=== PATIENT | male | born 1970 | race African-American/Black ===

== ENCOUNTER 2016-11-19 09:29 | Emergency (ER) | payer MEDICARE, OTHER ==
[~2016-11-19] VITALS: Ht 167.6 cm; Wt 62.6 kg
--- NOTE | 2016-11-19 10:46 | RAD ---
2 view CXR: Clinical indications: Productive cough for one year. Dizziness and chills for 3 days.. Findings: No acute lung infiltrate or pleural effusion or pulmonary edema or lung mass or pneumothorax is seen. The heart size, pulmonary vasculature, mediastinum and both anthony are unremarkable. The osseous structures appear intact. Impression: No acute radiographic abnormality is seen.
--- NOTE | 2016-11-19 10:54 | PHYS DOC ---
Past Medical History Past Medical History: Anxiety, Bipolar, HIV, Schizophrenia Past Surgical History: No Surgical History Smoking: Less than 1pk/day Alcohol Use: Occasionally Drug Use: Marijuana Adult General Chief Complaint Chief Complaint: EARACHE/EAR PAIN HPI HPI Patient is a 46 year old HIV+ male who presents with right ear pain and vertigo for 2 days. He reports chills, productive cough, and chronic nasal congestion. He has had intermittent left lower rib pain with his cough. He also reports some the left axilla for 4 days. He denies any drainage from the wounds. He states they are getting better spontaneously. He has a history of similar intermittently. He denies any fever, sore throat, or shortness of breath. The patient states that his viral load is nondetectable and his CD4 count is greater than 800 on Atripla antiretroviral therapy. He sees a PCP and infectious disease doctor at [facility]. Review of Systems Review of Systems Constitutional: Denies fever. Reports chills. Eyes: Denies change in visual acuity, redness, or eye pain. [] HENT: Denies sore throat. Reports right ear pain and chronic nasal congestion. Respiratory: Denies shortness of breath. Reports productive cough. Cardiovascular: Denies palpitations or edema. Reports intermittent left lower rib pain with cough. GI: Denies abdominal pain, nausea, vomiting, bloody stools or diarrhea. [] : Denies dysuria, hematuria or urinary frequency. [] Musculoskeletal: Denies back pain or joint pain. [] Integument: Denies rash or skin lesions. Reports left axillary abscess. Neurologic: Denies headache, focal weakness or sensory changes. Reports vertigo. Endocrine: Denies polyuria or polydipsia. [] Psych: Denies anxiety or depression. [] All systems reviewed and negative unless otherwise stated in the HPI. P Current Medications Current Medications Current Medications Medications (Trade) Dose Ordered Sig/Leslee Start Time Stop Time Status Last Admin Dose Admin Meclizine HCl (Antivert) 25 mg 1X ONCE 11/19/16 11:15 11/19/16 11:16 DC 11/19/16 10:49 25 MG Allergies Allergies Allergies Coded Allergies Type Severity Reaction Last Updated Verified fluphenazine Allergy Intermediate 11/19/16 Yes haloperidol Allergy Intermediate 11/19/16 Yes Physical Exam Physical Exam Constitutional: Well developed, well nourished, no acute distress, non-toxic appearance. [] HENT: Normocephalic, atraumatic, bilateral external ears normal, oropharynx moist, no oral exudates, nose normal. Bilateral TMs without erythema or bulging. There is no posterior pharyngeal erythema or tonsillar edema. Bilateral nasal turbinates are swollen and erythematous with purulent drainage. Eyes: PERRLA, EOMI, conjunctiva normal, no discharge. The patient reports vertigo with lateral movements of the eye. Neck: Normal range of motion, no tenderness, supple, no stridor. [] Cardiovascular: Heart rate regular rhythm, no murmur [] Lungs & Thorax: Bilateral breath sounds clear to auscultation without wheezes, rales, or rhonchi. Abdomen: Bowel sounds normal, soft, no tenderness, no masses, no pulsatile masses. [] Skin: Warm, dry, no erythema, no rash. [] Back: No tenderness, no CVA tenderness. [] Extremities: No tenderness, no cyanosis, no clubbing, ROM intact, no edema. [] Neurologic: Alert and oriented X 3, normal motor function, normal sensory function, no focal deficits noted. CN II-XII grossly intact. Psychologic: Affect normal, judgement normal, mood normal. [] Current Patient Data Vital Signs Vital Signs Date Time Temp Pulse Resp B/P Pulse Ox O2 Delivery O2 Flow Rate FiO2 11/19/16 10:15 98.1 64 16 100 Room Air 98.1 EKG EKG EKG at 1033. Heart rate [address] bpm. Sin[address] rhythm with ST elevation in leads V3 through V6 with concave ST changes with LVH consistent with early repolarization. Does not appear consistent with a STEMI. Interpreted by and discussed with Dr. Palmer. Radiology/Procedures Radiology/Procedures REASON: productive cough, chills, HIV+ PROCEDURE: CHEST PA & LATERAL 2 view CXR: Clinical indications: Productive cough for one year. Dizziness and chills for 3 days.. Findings: No acute lung infiltrate or pleural effusion or pulmonary edema or lung mass or pneumothorax is seen. The heart size, pulmonary vasculature, mediastinum and both anthony are unremarkable. The osseous structures appear intact. Impression: No acute radiographic abnormality is seen. Course & Med Decision Making Course & Med Decision Making Pertinent Labs and Imaging studies reviewed. (See chart for details) Patient is HIV positive male who presents with right ear pain and vertigo for 2 days as well has left axillary abscess for 4 days. On exam, he does not appear to have otitis. He does report vertigo with eye movements. There is no nystagmus. There are no neurologic deficits. He complained of chest pain with the cough. EKG is consistent with LVH with early repolarization. Chest x-ray does not show any focal infiltrates. Patient is discharged home with prescription for Keflex and Antivert. He is given contact information for infectious disease for follow-up at this hospital, as he requests this information because it is closer to him than [facility]. Return precautions were discussed. He verbalizes understanding and agrees with plan. Dragon Disclaimer Dragon Disclaimer This electronic medical record was generated, in whole or in part, using a voice recognition dictation system. Departure Departure Impression: Primary Impression: URI (upper respiratory infection) Additional Impressions: Vertigo Axillary abscess Disposition: HOME, SELF-CARE Condition: STABLE Referrals: JOLANTA DAVIDSON MD Patient Instructions: Abscess, [id number], Upper Respiratory Infection, Adult , [id number], Vertigo, [id number] Additional Instructions: Your chest x-ray did not show any sign of pneumonia. Please complete all the prescribed antibiotics, even if you are feeling better. Please use the Antivert as needed for dizziness. Please follow-up with the infectious disease doctor listed below. Return to the emergency department if you have any new or concerning symptoms. Scripts Meclizine Hcl 25 Mg Tablet1 Tab PO PRN TID PRN DIZZINESS #30 TAB Prov:YOSELIN MADDEN 11/19/16 Cephalexin (Keflex)500 Mg Capsule1 Cap PO BID #14 CAP Prov:YOSELIN MADDEN 11/19/16 Problem Qualifiers Primary Impression: URI (upper respiratory infection) URI type: unspecified URI Qualified Code: J06.9 - Acute upper respiratory infection, unspecified YOSELIN MADDEN Nov 19, 2016 10:54
[2016-11-19] MEDS ORDERED: MECLIZINE HCL 12.5 MG TABLET. PO ONE (11:15)
[2016-11-19] MEDS ORDERED: MECL25TA3 PO (11:52)
[2016-11-19] MEDS ORDERED: CEPH-264 PO (11:52)
[2016-11-19 12:09] VITALS: BP 135/79
--- NOTE | 2016-11-19 14:20 | EKG ---
[facility] [address] [place] [address] Test Date: 2016-11-19 Test Time: 10:33:48 Pat Name: LISANDRA SALAS Department: Room: Gender: M [employer]: : 1970 Requested By: YOSELIN MADDEN Order Number: [id number] Reading MD: Measurements Intervals Sevier Rate: 57 P: 49 WY: 186 QRS: 56 QRSD: 106 T: 51 QT: 366 QTc: 359 Interpretive Statements SINUS RHYTHM ST-T ELEVATION, CONSIDER ACUTE ANTERIOR INFARCT RI6.01 No previous ECG available for comparison
== END 2016-11-19 12:10 | disposition home or self-care (01) ==
LOC: EDSEX 09:29 → ER 09:29
DX: J06.9 Acute upper respiratory infection, unspecified (principal); L02.419 Cutaneous abscess of limb, unspecified; R42 Dizziness and giddiness; F31.9 Bipolar disorder, unspecified; F20.9 Schizophrenia, unspecified; F17.200 Nicotine dependence, unspecified, uncomplicated; F12.10 Cannabis abuse, uncomplicated; Z88.8 Allergy status to other drugs, medicaments and biological substances
CPT/HCPCS: 71020; 93005; 99284; J8597

== ENCOUNTER 2018-01-04 15:17 | Emergency (ER) | payer MEDICARE, OTHER ==
[2018-01-04] MEDS: ASPIRIN 325 MG TABLET PO (16:37)
[2018-01-04 16:40] LABS: ADD MAN DIFF? NO
[2018-01-04 16:59] LABS: BILIRUBIN,URINE NEGATIVE (NEG); CLARITY,URINE CLEAR; COLOR,URINE YELLOW; GLUCOSE,URINE NEGATIVE (NEG); NITRITE,URINE NEGATIVE (NEG); PROTEIN,URINE NEGATIVE (NEG-TRACE)
[2018-01-04 17:02] LABS: ANION GAP 5 (6-14); BLOOD UREA NITROGEN 11 mg/dL (8-26); CALCIUM 8.8 mg/dL (8.5-10.1); CARBON DIOXIDE 31 mmol/L (21-32); CHLORIDE 108 mmol/L (98-107); CREATININE 1.1 mg/dL (0.7-1.3); GFR 87.2; GLUCOSE 98 mg/dL (70-99); POTASSIUM 3.9 mmol/L (3.5-5.1); SODIUM 144 mmol/L (136-145)
[2018-01-04 17:08] LABS: BARBITURATES NEG (NEG); BASO % 1 % (0-3); BENZODIAZEPINES NEG (NEG); CANNABINOIDS POS (NEG); COCAINE NEG (NEG); EOS % 1 % (0-3); HEMATOCRIT 40.8 % (39.0-53.0); HEMOGLOBIN 13.7 g/dL (13.0-17.5); LYMPH # 1.5 x10^3/uL (1.0-4.8); LYMPH % 38 % (24-48); MEAN CORPUSCULAR HEMOGLOBIN 35 pg (25-35); MEAN CORPUSCULAR HGB CONC 34 g/dL (31-37); MEAN CORPUSCULAR VOLUME 104 fL (79-100); METHADONE NEG (NEG); MONO # 0.3 x10^3/uL (0.0-1.1); MONO % 7 % (0-9); NEUT % 53 % (31-73); OPIATES NEG (NEG); PHENCYCLIDINE NEG (NEG); PLATELET COUNT 132 x10^3/uL (140-400); RED BLOOD COUNT 3.93 x10^6/uL (4.30-5.70); RED CELL DISTRIBUTION WIDTH 12.5 % (11.5-14.5); WHITE BLOOD COUNT 3.9 x10^3/uL (4.0-11.0)
[2018-01-04 17:09] LABS: AMPHETAMINE/METHAMPHETAMINE NEG (NEG); ETHANOL, URINE NEG (NEG)
[2018-01-04 17:09] LABS: ETHANOL < 10 mg/dL (0-10)
[2018-01-04 17:12] LABS: BACTERIA,URINE 0 /HPF (0-FEW); RBC,URINE 0 /HPF (0-2); SQUAMOUS EPITHELIAL CELL,UR OCC /LPF; WBC,URINE 0 /HPF (0-4)
[2018-01-04 17:16] LABS: CREATINE KINASE 88 U/L (39-308)
[2018-01-04 17:16] LABS: NT-PRO BNP 35 pg/mL (0-124)
[2018-01-04 17:17] LABS: TROPONINI < 0.017 ng/mL (0.000-0.055)
[2018-01-04 17:17] LABS: CKMB INDEX 0.6 % (0-4); CKMB MASS < 0.5 ng/mL (0.0-3.6)
== END 2018-01-04 17:50 | disposition home or self-care (01) ==
LOC: ER 15:17
DX: S29.011A Strain of muscle and tendon of front wall of thorax, initial encounter (principal); S00.452A Superficial foreign body of left ear, initial encounter; F12.10 Cannabis abuse, uncomplicated; Z79.82 Long term (current) use of aspirin; Z88.8 Allergy status to other drugs, medicaments and biological substances; X58.XXXA Exposure to other specified factors, initial encounter; Y93.89 Activity, other specified; Y92.89 Other specified places as the place of occurrence of the external cause; Y99.8 Other external cause status
CPT/HCPCS: 36415; 71101; 80048; 80307; 81001; 82553; 83880; 84484; 85025; 93005; 99285; G0480

== ENCOUNTER → 2018-04-06 | Outpatient (CLI) | payer MEDICARE, OTHER ==
[2018-01-04 17:14] VITALS: BP 159/89
[~2018-04-06] MED LIST: CEPH-264 PO; CYCL10TA2 PO; IOHEXOL 240 MG/ML 50ML VIAL. PO ONE; IOHEXOL 300 MG/ML 100ML VIAL. IV ONE; MECL25TA3 PO; NAPR-514 PO
--- NOTE | 2018-04-06 12:32 | RAD ---
CT CHEST ABD PELVIS W/CONTRAST dated 04/06/2018 11:03 AM Indication:..PROGRESSIVE WEIGHT LOSS AND FAMILY H/O MALIGNANCY. IV OMNI 300 75 MLS AND PO OMNI 240 50 MLS. Comparison: No comparison is available. Technique: Contiguous axial imaging of the chest abdomen and pelvis performed following the intravenous administration of 75 cc Omnipaque 300. One or more of the following individualized dose reduction techniques were utilized for this examination: 1. Automated exposure control 2. Adjustment of the mA and/or kV according to patient size 3. Use of iterative reconstruction technique Findings: Heart size within normal limits. No pericardial effusion. Scattered coronary artery calcifications. There is mild circumferential wall thickening of the esophagus. There is prominent right hilar lymph node measuring up to 1.2 cm short axis. There is also some soft tissue prominence of the subcarinal region measuring up to 1.2 cm short axis. Borderline enlarged lymph node at the right paratracheal region. No axillary adenopathy or left hilar adenopathy. Thyroid gland unremarkable. Central airways are patent. Lungs are clear without focal consolidation. There is a 3 mm noncalcified pulmonary nodule in the left lower lobe on image 47. Lungs are otherwise clear.. No pleural effusion or pneumothorax. Liver, spleen, pancreas, gallbladder unremarkable. Indeterminate nodular focus at the left adrenal gland measuring 2.3 cm. Right adrenal gland unremarkable. Kidneys are symmetric in size and enhancement. No hydronephrosis. Partially opacified GI tract normal in caliber and contour. No focal bowel wall thickening. No inflammatory stranding in the mesentery. No ascites or lymphadenopathy. Abdominal aorta normal in caliber. Images of pelvis show nondistended urinary bladder. Prostate gland is moderately enlarged. No free fluid or lymphadenopathy. Bone windows show no acute findings. Mild multilevel spondylosis. Impression chest: 1. No acute abnormality of chest. 2. Small noncalcified pulmonary nodule in the left lower lobe, nonspecific. 3. Coronary artery calcic effusions. 4. Mild mediastinal and right hilar lymphadenopathy, nonspecific. Follow-up imaging may be warranted to ensure stability. Impression abdomen pelvis: 1. No acute abnormality of abdomen or pelvis. 2. Indeterminate nodule at the left adrenal gland measuring up to 2.3 cm in size. If indicated, dedicated adrenal MRI or adrenal washout CT to better evaluate. 3. Prostatomegaly. Electronically signed by: Maurizio Mcdaniels MD (04/06/2018 12:29 PM) [facility]
== END | disposition home or self-care (01) ==
LOC: CT 10:41
PROVIDERS: ATTEND Internal Medicine Infectious Disease
DX: I25.41 Coronary artery aneurysm (principal); R91.1 Solitary pulmonary nodule; R59.1 Generalized enlarged lymph nodes; Z87.891 Personal history of nicotine dependence; Z88.8 Allergy status to other drugs, medicaments and biological substances; Z80.8 Family history of malignant neoplasm of other organs or systems
CPT/HCPCS: 71260; 74177; Q9966; Q9967

== ENCOUNTER 2021-05-07 11:02 | Emergency (ER) | payer MEDICARE, OTHER ==
[~2021-05-07] VITALS: Ht 167.6 cm; Wt 61.9 kg
[~2021-05-07 11:02] MED LIST changes: -IOHEXOL 240 MG/ML 50ML VIAL. PO ONE; -IOHEXOL 300 MG/ML 100ML VIAL. IV ONE; +MECL-75 PO; -MECL25TA3 PO
[2021-05-07] MEDS ORDERED: fentaNYL PF VIAL 100 MCG/2 ML VIAL IV ONE (13:00)
[2021-05-07] MEDS ORDERED: IV NORMAL SALINE 1000ML BAG 1,000 ML IV ONE (13:00)
[2021-05-07] MEDS ORDERED: ASPIRIN 325 MG TABLET PO ONE (13:00)
[2021-05-07 13:05] LABS: BASO % 1 % (0-3); EOS # 0.1 x10^3/uL (0.0-0.7); EOS % 1 % (0-3); HEMATOCRIT 39.4 % (39.0-53.0); HEMOGLOBIN 13.4 g/dL (13.0-17.5); LYMPH # 2.1 x10^3/uL (1.0-4.8); LYMPH % 34 % (24-48); MEAN CORPUSCULAR HEMOGLOBIN 36 pg (25-35); MEAN CORPUSCULAR HGB CONC 34 g/dL (31-37); MEAN CORPUSCULAR VOLUME 104 fL (79-100); MONO # 0.5 x10^3/uL (0.0-1.1); MONO % 8 % (0-9); NEUT # 3.4 x10^3/uL (1.8-7.7); NEUT % 56 % (31-73); PLATELET COUNT 166 x10^3/uL (140-400); RED BLOOD COUNT 3.78 x10^6/uL (4.30-5.70); RED CELL DISTRIBUTION WIDTH 12.9 % (11.5-14.5); WHITE BLOOD COUNT 6.1 x10^3/uL (4.0-11.0)
[2021-05-07 13:23] LABS: CREATININE 1.1 mg/dL (0.7-1.3); GFR 85.7; POTASSIUM 3.8 mmol/L (3.5-5.1)
[2021-05-07 13:28] LABS: ALBUMIN 3.6 g/dL (3.4-5.0); ALBUMIN/GLOBULIN RATIO 1.1 (1.0-1.7); MAGNESIUM 2.4 mg/dL (1.8-2.4); TOTAL BILIRUBIN 0.5 mg/dL (0.2-1.0)
--- NOTE | 2021-05-07 13:28 | PHYS DOC ---
Past Medical History Past Medical History: Anxiety, Bipolar, HIV, Schizophrenia, Other Additional Past Medical Histor: HIV, DDD, Spinal stenosis Past Surgical History: Other Additional Past Surgical Histo: toe surgery, varicose veins Smoking Status: Current Every Day Smoker Additional Information: 1.5PPD Alcohol Use: None Drug Use: None, Marijuana General Adult EDM: Chief Complaint: ABDOMINAL PAIN HPI: HPI: Patient is a 51-year-old male presents with report of abdominal discomfort that has been ongoing for the past 4 years. Patient reports worse since 1 AM. Patient reports he was supposed to have a colonoscopy today and started mag citrate. Patient has only had 1 bowel movement. Patient also with sharp intermittent chest pain. Cardiac risk factors of hypertension and smoking. Denies trauma. Denies fever or chills. Denies known sick contacts. Review of Systems: Review of Systems: Constitutional: Denies fever or chills Eyes: Denies redness or eye pain HENT: Denies nasal congestion or sore throat Respiratory: Denies cough; reports shortness of breath Cardiovascular: Reports intermittent sharp chest pain; denies palpitations GI: Reports abdominal pain and constipation; denies nausea or vomiting : Denies dysuria or hematuria Musculoskeletal: Denies back pain or joint pain Integument: Denies rash or skin lesions Neurologic: Denies headache, focal weakness or sensory changes Complete systems were reviewed and found to be within normal limits, except as documented in this note. Heart Score: C/O Chest Pain: N/A Current Medications: Current Medications Medications (Trade) Dose Ordered Sig/Leslee Start Time Stop Time Status Last Admin Dose Admin Aspirin (Eren Aspirin) 325 mg 1X ONCE 05/07/21 13:00 05/07/21 13:01 DC 05/07/21 13:16 325 MG Fentanyl Citrate (Fentanyl 2ml Vial) 50 mcg 1X ONCE 05/07/21 13:00 05/07/21 13:01 DC 05/07/21 13:16 50 MCG Info (CONTRAST GIVEN -- Rx MONITORING) 1 each PRN DAILY PRN 05/07/21 13:30 05/09/21 13:29 Iohexol (Omnipaque 240 Mg/ml) 50 ml 1X ONCE 05/07/21 13:30 05/07/21 13:31 Iohexol (Omnipaque 350 Mg/ml) 90 ml 1X ONCE 05/07/21 13:30 05/07/21 13:31 Sodium Chloride 1,000 ml @ 1,000 mls/hr 1X ONCE 05/07/21 13:00 05/07/21 13:59 05/07/21 13:16 1,000 MLS/HR Allergies: Allergies: Allergies Coded Allergies Type Severity Reaction Last Updated Verified fluphenazine Allergy Intermediate 11/19/16 Yes haloperidol Allergy Intermediate 11/19/16 Yes Physical Exam: PE: Constitutional: Well developed, well nourished, no acute distress, non-toxic appearance HENT: Normocephalic, atraumatic Eyes: Conjunctiva normal, no discharge Neck: Normal range of motion, supple Lungs & Thorax: No respiratory distress, equal chest rise and fall Abdomen: Soft, diffuse tenderness, no guarding/rebound tenderness Skin: Warm, dry, no erythema, no rash Back: No tenderness, no CVA tenderness Extremities: No tenderness, ROM intact, no edema Neurologic: Alert and oriented X 3, no focal deficits noted Psychologic: Affect normal, judgment normal Current Patient Data: Labs: Laboratory Tests Test 05/07/21 12:30 White Blood Count 6.1 x10^3/uL (4.0-11.0) Red Blood Count 3.78 x10^6/uL (4.30-5.70) L Hemoglobin 13.4 g/dL (13.0-17.5) Hematocrit 39.4 % (39.0-53.0) Mean Corpuscular Volume 104 fL (79-100) H Mean Corpuscular Hemoglobin 36 pg (25-35) H Mean Corpuscular Hemoglobin Concent 34 g/dL (31-37) Red Cell Distribution Width 12.9 % (11.5-14.5) Platelet Count 166 x10^3/uL (140-400) Neutrophils (%) (Auto) 56 % (31-73) Lymphocytes (%) (Auto) 34 % (24-48) Monocytes (%) (Auto) 8 % (0-9) Eosinophils (%) (Auto) 1 % (0-3) Basophils (%) (Auto) 1 % (0-3) Neutrophils # (Auto) 3.4 x10^3/uL (1.8-7.7) Lymphocytes # (Auto) 2.1 x10^3/uL (1.0-4.8) Monocytes # (Auto) 0.5 x10^3/uL (0.0-1.1) Eosinophils # (Auto) 0.1 x10^3/uL (0.0-0.7) Basophils # (Auto) 0.0 x10^3/uL (0.0-0.2) Laboratory Tests 05/07/21 12:30 Vital Signs: Vital Signs Date Time Temp Pulse Resp B/P (MAP) Pulse Ox O2 Delivery O2 Flow Rate FiO2 05/07/21 11:45 97.8 67 18 144/84 (104) 99 Room Air 97.8 EKG: EKG: @1218 NSR at 61bpm, ST elevation to V2-V3 without reciprocal changes, QRS 102ms, QT/QTc 366/370ms Radiology/Procedures: Radiology/Procedures: PROCEDURE: CT ANGIO CHEST W ABD PEL W/ CTA CHEST_ABDOMEN_AND PELVIS History: Chest pain, abdominal pain. Concern for PE. Comparison: CT chest, abdomen and pelvis 04/06/2018. Technique: CT angiogram of the chest, followed by CT abdomen and pelvis with oral and intravenous contrast. 3-D coronal and sagittal MIPS reformats of the thorax were obtained. Findings: Pulmonary arteries: No pulmonary embolism. Aorta and great vessels: No aneurysm of the aortic arch or thoracic aorta is seen. No atherosclerotic calcification. Heart: The heart is normal in size. There is no pericardial effusion. No coronary artery calcification. Thyroid: No significant abnormalities. Mediastinum and anthony: No mediastinal masses or adenopathy is seen. Esophagus: The visualized esophagus is normal. Airways, Lungs, Pleura: The airways are clear. There is minimal right basilar atelectasis. No airspace consolidation. No pleural effusion or pneumothorax. General abdomen: No ascites. No free air. Liver : Normal in size and attenuation. No masses seen. Gallbladder/Biliary Tree: Normal gallbladder. No intrahepatic or extrahepatic biliary ductal dilatation. Pancreas: Normal. Spleen: Normal in size and attenuation. Adrenal glands: Left adrenal gland nodule measures 1.7 cm diameter. Kidneys: No hydronephrosis or hydroureter. No renal masses identified. Gastrointestinal: Contrast extends through the small bowel to the terminal ileum. Normal appendix. No colonic wall thickening or pericolonic inflammatory changes. Lymph nodes: No adenopathy. Vessels: Bilateral iliac atherosclerotic calcification and mural plaque. Pelvic Organs: Enlarged prostate gland. The bladder is unremarkable. Soft tissues: Unremarkable. Bones: Bilateral sacroiliac ankylosis. No acute findings. Impression: 1. No pulmonary embolism, aortic aneurysm or aortic dissection. 2. Indeterminate left adrenal nodule measuring 1.7 cm may represent adenoma, cannot exclude metastatic disease or primary adrenal malignancy. Recommend dedi cated MRI or CT adrenal protocol for characterization. Correlate clinically for evidence of functioning adenoma. 3. Enlarged prostate. Correlate with exam. 4. Mild right basilar lung atelectasis. No acute findings in the abdomen and pelvis. ------ Exposure: One or more of the following individualized dose reduction techniques were utilized for this examination: 1. Automated exposure control 2. Adjustment of the mA and/or kV according to patient size 3. Use of iterative reconstruction technique. Electronically signed by: Rk Calderon MD (05/07/2021 3:10 PM) [id number] Course & Med Decision Making: Course & Med Decision Making Pertinent Labs and Imaging studies reviewed. (See chart for details) Patient presents with intermittent chest discomfort and abdominal discomfort which is worse today. Reports chronic abdominal pain x4 years. Patient reports symptoms worsened after trying to use MiraLAX for colonoscopy prep. Patient reports only one bowel movement. Patient with significant cardiac risk factors. EKG abnormal. Labs obtained and posted to chart. Initial troponin within normal limits. Chest x-ray without acute process. HEART score 4. Discussed findings with Dr Dawkins (cardiology) who is in agreement with consultation. Patient requiring admission for further evaluation and treatment. Discussed with Dr. Pace (hospitalist) who is in agreement with admission. Discussed findings and plan with patient, who acknowledges understanding and agreement. Orin Disclaimer: Orin Disclaimer: This electronic medical record was generated, in whole or in part, using a voice recognition dictation system. Departure Departure Impression: Primary Impression: Chest pain Qualified Codes: R07.9 - Chest pain, unspecified Additional Impressions: Abnormal EKG Chronic abdominal pain Disposition: ADMITTED INPATIENT (Observation) Admitting Physician: FLETCHER Barragan) Condition: STABLE Referrals: UNKNOWN PCP NAME (PCP) KARRI BONILLA DO May 07, 2021 13:28
[2021-05-07] MEDS ORDERED: IOHEXOL 240 MG/ML 50ML VIAL. PO ONE (13:30)
[2021-05-07] MEDS ORDERED: IOHEXOL 350 MG/ML 100 ML VIAL. IV ONE (13:30)
[2021-05-07] MEDS ORDERED: CONTRAST GIVEN. MC PRN (13:30)
[2021-05-07 13:44] LABS: PROTHROMBIN TIME PATIENT 12.9 SEC (11.7-14.0)
--- NOTE | 2021-05-07 15:12 | RAD ---
CTA CHEST_ABDOMEN_AND PELVIS History: Chest pain, abdominal pain. Concern for PE. Comparison: CT chest, abdomen and pelvis 04/06/2018. Technique: CT angiogram of the chest, followed by CT abdomen and pelvis with oral and intravenous con trast. 3-D coronal and sagittal MIPS reformats of the thorax were obtained. Findings: Pulmonary arteries: No pulmonary embolism. Aorta and great vessels: No aneurysm of the aortic arch or thoracic aorta is seen. No atherosclerotic calcification. Heart: The heart is normal in size. There is no pericardial effusion. No coronary artery calcificatio n. Thyroid: No significant abnormalities. Mediastinum and anthony: No mediastinal masses or adenopathy is seen. Esophagus: The visualized esophagus is normal. Airways, Lungs, Pleura: The airways are clear. There is minimal right basilar atelectasis. No airspac e consolidation. No pleural effusion or pneumothorax. General abdomen: No ascites. No free air. Liver : Normal in size and attenuation. No masses seen. Gallbladder/Biliary Tree: Normal gallbladder. No intrahepatic or extrahepatic biliary ductal dilatati on. Pancreas: Normal. Spleen: Normal in size and attenuation. Adrenal glands: Left adrenal gland nodule measures 1.7 cm diameter. Kidneys: No hydronephrosis or hydroureter. No renal masses identified. Gastrointestinal: Contrast extends through the small bowel to the terminal ileum. Normal appendix. No colonic wall thickening or pericolonic inflammatory changes. Lymph nodes: No adenopathy. Vessels: Bilateral iliac atherosclerotic calcification and mural plaque. Pelvic Organs: Enlarged prostate gland. The bladder is unremarkable. Soft tissues: Unremarkable. Bones: Bilateral sacroiliac ankylosis. No acute findings. Impression: 1. No pulmonary embolism, aortic aneurysm or aortic dissection. 2. Indeterminate left adrenal nodule measuring 1.7 cm may represent adenoma, cannot exclude metastat ic disease or primary adrenal malignancy. Recommend dedicated MRI or CT adrenal protocol for characte rization. Correlate clinically for evidence of functioning adenoma. 3. Enlarged prostate. Correlate with exam. 4. Mild right basilar lung atelectasis. No acute findings in the abdomen and pelvis. ------ Exposure: One or more of the following individualized dose reduction techniques were utilized for thi s examination: 1. Automated exposure control 2. Adjustment of the mA and/or kV according to patient size 3. Use of iterative reconstruction technique. Electronically signed by: Rk Calderon MD (05/07/2021 3:10 PM) [id number]
[2021-05-07 15:29] VITALS: BP 131/77
--- NOTE | 2021-05-07 15:39 | PDOC2 ---
CARDIAC CONSULT DATE OF CONSULT Date of Consult DATE: 05/07/21 TIME: 15:30 REASON FOR CONSULT Reason for Consult: Chest pain REFERRING PHYSICIAN Referring Physician: Bruce SOURCE Source: Chart review, Patient HISTORY OF PRESENT ILLNESS HISTORY OF PRESENT ILLNESS This is a 51 yo male admitted for complains of abdominal pain. Reports that this started after ingesting Mg citrate for bowel prep for colonoscopy. Upon admis endra he has been noted with abnormal EKG. Mainly this appears to be early repolarization. He has chest pain but this has been on and off in the last 5-6 months that shoots briefly intermittently and not long lasting. Furthermore this is not triggered by activity nor any experience of GAN. 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 No prior hx of CAD, arrhythmia. No complains of palpitations. No recent falls or injury. He is wanting to get out of the hospital already and does not want to stay further. He is a smoker and takes 1 BP med otherwise no NSAIDs, ASA or statin use. PAST MEDICAL HISTORY Cardiovascular: HTN Pulmonary: No pertinent hx CENTRAL NERVOUS SYSTEM: Other (No pertinent history) Psych: Anxiety, Bipolar, Schizophrenia Musculoskeletal: low back pain, Osteoarthritis Infectious disease: Other (HIV) PAST SURGICAL HISTORY Past Surgical History: Other (right big toe surgery) FAMILY HISTORY Family History noncontributory to CV SOCIAL HISTORY Smoke: <1 pack per day Lives: Alone CURRENT MEDICATIONS CURRENT MEDICATIONS Current Medications Medications (Trade) Dose Ordered Sig/Leslee Route PRN Reason Start Time Stop Time Status Last Admin Dose Admin Aspirin (Eren Aspirin) 325 mg 1X ONCE PO 05/07/21 13:00 05/07/21 13:01 DC 05/07/21 13:16 Sodium Chloride 1,000 ml @ 1,000 mls/hr 1X ONCE IV 05/07/21 13:00 05/07/21 13:59 DC 05/07/21 13:16 Fentanyl Citrate (Fentanyl 2ml Vial) 50 mcg 1X ONCE IV 05/07/21 13:00 05/07/21 13:01 DC 05/07/21 13:16 Iohexol (Omnipaque 350 Mg/ml) 90 ml 1X ONCE IV 05/07/21 13:30 05/07/21 13:31 DC 05/07/21 13:30 Iohexol (Omnipaque 240 Mg/ml) 50 ml 1X ONCE PO 05/07/21 13:30 05/07/21 13:31 DC 05/07/21 13:31 ALLERGIES ALLERGIES: Coded Allergies: fluphenazine (Verified Allergy, Intermediate, 11/19/16) haloperidol (Verified Allergy, Intermediate, 11/19/16) ROS Review of System 14 point ROS evaluated with pertinent positives noted per HPI PHYSICAL EXAM General: Alert, Oriented X3, Cooperative, No acute distress HEENT: Atraumatic, Mucous membr. moist/pink Lungs: Clear to auscultation, Normal air movement Heart: Regular rate (SR), Normal S1, Normal S2, No murmurs Abdomen: Soft, No tenderness Extremities: No cyanosis, No edema Skin: No breakdown, No significant lesion Neuro: Normal speech, Sensation intact Psych/Mental Status: Mental status NL, Other (irritable) MUSCULOSKELETAL: Full range of motion without pain VITALS/I&O VITALS/I&O: Vital Signs Date Time Temp Pulse Resp B/P (MAP) Pulse Ox O2 Delivery O2 Flow Rate FiO2 05/07/21 13:35 66 32 173/82 (112) 100 Room Air 05/07/21 11:45 97.8 97.8 LABS Lab: Laboratory Tests Test 05/07/21 12:30 05/07/21 13:25 White Blood Count 6.1 x10^3/uL (4.0-11.0) Red Blood Count 3.78 x10^6/uL (4.30-5.70) L Hemoglobin 13.4 g/dL (13.0-17.5) Hematocrit 39.4 % (39.0-53.0) Mean Corpuscular Volume 104 fL (79-100) H Mean Corpuscular Hemoglobin 36 pg (25-35) H Mean Corpuscular Hemoglobin Concent 34 g/dL (31-37) Red Cell Distribution Width 12.9 % (11.5-14.5) Platelet Count 166 x10^3/uL (140-400) Neutrophils (%) (Auto) 56 % (31-73) Lymphocytes (%) (Auto) 34 % (24-48) Monocytes (%) (Auto) 8 % (0-9) Eosinophils (%) (Auto) 1 % (0-3) Basophils (%) (Auto) 1 % (0-3) Neutrophils # (Auto) 3.4 x10^3/uL (1.8-7.7) Lymphocytes # (Auto) 2.1 x10^3/uL (1.0-4.8) Monocytes # (Auto) 0.5 x10^3/uL (0.0-1.1) Eosinophils # (Auto) 0.1 x10^3/uL (0.0-0.7) Basophils # (Auto) 0.0 x10^3/uL (0.0-0.2) Sodium Level 141 mmol/L (136-145) Potassium Level 3.8 mmol/L (3.5-5.1) Chloride Level 105 mmol/L (98-107) Carbon Dioxide Level 30 mmol/L (21-32) Anion Gap 6 (6-14) Blood Urea Nitrogen 12 mg/dL (8-26) Creatinine 1.1 mg/dL (0.7-1.3) Estimated GFR (Cockcroft-Gault) 85.7 BUN/Creatinine Ratio 11 (6-20) Glucose Level 76 mg/dL (70-99) Calcium Level 9.0 mg/dL (8.5-10.1) Magnesium Level 2.4 mg/dL (1.8-2.4) Total Bilirubin 0.5 mg/dL (0.2-1.0) Aspartate Amino Transferase (AST) 16 U/L (15-37) Alanine Aminotransferase (ALT) 17 U/L (16-63) Alkaline Phosphatase 70 U/L (46-116) Troponin I Quantitative < 0.017 ng/mL (0.000-0.055) WF-Kko-L-Type Natriuretic Peptide 53 pg/mL (0-124) Total Protein 7.0 g/dL (6.4-8.2) Albumin 3.6 g/dL (3.4-5.0) Albumin/Globulin Ratio 1.1 (1.0-1.7) Lipase 54 U/L (73-393) L Prothrombin Time 12.9 SEC (11.7-14.0) Prothrombin Time INR 1.0 (0.8-1.1) Laboratory Tests 05/07/21 12:30 Laboratory Tests 05/07/21 12:30 ASSESSMENT/PLAN ASSESSMENT/PLAN 1. Atypical chest pain: CTA revealed no PE nor vascular issues. Suspect MSK. Low probability for CAD 2. Left adrenal adenoma per CT 3. Hx of schizophrenia 4. Abnormal EKG: trop and pro NT BNP nml. appears to be early repolarization 5. Hx of HIV 6. Tobaccoism 7. Abdominal pain: due to bowel prep for colonoscopy 8. HTN: takes 1 BP med. Controlled 9. Marinol use: taking it for appetite stimulator 10. Spinal stenosis Recommendation 1. If trop is negative no further cardiac workup 2. Smoking cessation 3. Resume home BP ADONIS Graham SETTLEMENT CLERK May 07, 2021 15:39
[2021-05-07] MEDS ORDERED: NICOTINE 21MG PATCH. TD ONE (15:45)
[2021-05-07] MEDS ORDERED: fentaNYL PF VIAL 100 MCG/2 ML VIAL IVP PRN (16:00)
[2021-05-07] MEDS ORDERED: ONDANSETRON PF 4 MG/2 ML VIAL. IVP PRN (16:00)
--- NOTE | 2021-05-07 18:31 | EKG ---
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
--- NOTE | 2021-05-07 18:32 | EKG ---
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
== END 2021-05-07 16:50 | disposition left against medical advice (07) ==
LOC: ER 11:02
DX: R07.89 Other chest pain (principal); R10.9 Unspecified abdominal pain; G89.29 Other chronic pain; F31.9 Bipolar disorder, unspecified; F20.9 Schizophrenia, unspecified; F41.9 Anxiety disorder, unspecified; F17.200 Nicotine dependence, unspecified, uncomplicated; Z88.8 Allergy status to other drugs, medicaments and biological substances
CPT/HCPCS: 36415; 71275; 74177; 80053; 83690; 83735; 83880; 84484; 85025; 85610; 93005; 96361; 96374; 99285; J3010; J7030; Q9966; Q9967